=== PATIENT | male | born 1990 | race Caucasian/White ===

== ENCOUNTER 2025-04-19 02:15 | Emergency (ER) | payer OTHER, SELFPAY ==
--- OUTSIDE RECORDS SUMMARY | 2025-04-16 12:00 | XMS_ITS | Encounter Summary ---
Author Organization [facility] Address [address] [place] [address] Care Team Providers Care Screedman/Laborer Name Role Phone Diana Garcia APRN, CNP Primary Care Provider Reason for Visit * Reason Comments QUESTIONS, GENERAL Entered automaticall y based on patient selection in [employer]. Encounter Details Date Type Department Care Team (Late st Contact Info) Description 04/16/2025 12:00 PM CDT E-Visit [facility] [address] [place] [phone] Diana Garcia APRN, RESEARCH DIRECTOR [address] [place] [phone] Dx: Screening examination for pulmonary tuberculosis [...] Primary documented in this encounter Care Teams Screedman/Laborer Relationship Specialty Start Date End Date Diana Garcia APRN, CNP [address] [place], [place] [phone] PCP - General Nurse Practitioner 11/22/23 documented as of this encounter
--- OUTSIDE RECORDS SUMMARY | 2025-04-16 15:10 | XMS_ITS | Encounter Summary ---
Author Organization [facility] Address [address] [facility] [place] [address] Care Team Providers Care Packager Or Packer And Weigher Name Role Phone Diana Garcia APRN, WHITLEY Primary Care Provider Encounter Details Date Type Department Care Team (Latest Contact Info) Description 04/16/2025 3:10 PM CDT Lab Visit Laboratory at [address] [phone] Screening examination for pulmonary tuberculosis Social History Tobacco Use Types Packs/Day Years [...] on file documented as of this encounter Plan of Treatment Not on file documented as of this encounter Procedures Procedure Name Priority Date/Time Associated Diagnosis Comments TB QUANTIFERON GOLD PLUS Routine 04/16/2025 2:43 PM CDT Screening examination for pulmonary tuberculosis TB QUANTIFERON GOLD PLUS MITOGEN Routine 04/16/2025 2:43 PM CDT Screening examination for pulmonary tuberculosis TB QUANTIFERON GOLD PLUS TB2 Routine 04/16/2025 2:43 PM CDT Screening examination for pulmonary tuberculosis TB QUANTIFERON GOLD PLUS TB1 Routine 04/16/2025 2:43 PM CDT Screening examination for pulmonary tuberculosis TB QUANTIFERON GOLD PLUS NIL Routine 04/16/2025 2:43 PM CDT Screening examination for pulmonary tuberculosis documented in this encounter Results * TB QuantiFERON Gold Plus Mitogen (04/16/2025 2:43 PM CDT) MITOGEN >10.000 IU/mL 04/18/2025 11:04 AM CDT [facility] Blood Venipuncture / Unknown 04/16/2025 2:43 PM CDT 04/16/2025 2:43 PM CDT Diana Garcia APRN, DENTAL CHAIRSIDE ASSISTANT LAB_1 Final Result Performing Organization Address [facility] Phone Number [facility] [address] [place] [address] * TB QuantiFERON Gold Plus TB2 (04/16/2025 2:43 PM CDT) TB2 0.165 IU/mL 04/18/2025 11:05 AM CDT [facility] Blood Venipuncture / Unknown 04/16/2025 2:43 PM CDT 04/16/2025 2:43 PM CDT Diana Garcia APRN, DENTAL CHAIRSIDE ASSISTANT LAB_1 Final Result Performing Organization Address [facility] Phone Number [facility] [address] [place] [address] * TB QuantiFERON Gold Plus TB1 (04/16/2025 2:43 PM CDT) TB1 0.111 IU/mL 04/18/2025 11:05 AM CDT [facility] Blood Venipuncture / Unknown 04/16/2025 2:43 PM CDT 04/16/2025 2:43 PM CDT Diana Garcia APRN, CNP LAB_1 Final Result Performing Organization Address [facility] de Phone Number [facility] [address] * TB QuantiFERON Gold Plus NIL (04/16/2025 2:43 PM CDT) [facility] TB QuantiFERON Gold Plus Negative, M. tuberculosis Infection NOT likely Negative, M. tuberculosis Infection NOT likely 04/18/2025 11:05 AM CDT [facility] NIL 0.233 IU/mL 04/18/2025 11:05 AM CDT [facility] TB1-NIL -0.12 IU/mL 04/18/2025 11:05 AM CDT [facility] TB2-NIL -0.06 IU/mL 04/18/2025 11:05 AM CDT [facility] Mitogen-NIL 9.77 IU/mL 04/18/2025 11:05 AM CDT [facility] Blood Venipuncture / Unknown 04/16/2025 2:43 PM CDT 04/16/2025 2:43 PM CDT Narrative [facility] - 04/18/2025 11:05 AM CDT The results of the QuantiFERON TB Gold Plus should be correlated clinically. A single positive test in populations with a low prevalence of latent tuberculosis infection (low pretest probability), should not be taken as definitive evidence of infection. Decisions regarding retesting should be made on a case by case basis. When TB1-NIL or TB2-NIL is low (<1 IU/mL), repeat testing may alternate between positive and negative due to measurement imprecision and not necessarily a change in immune response. For more information refer to: https://www.cdc.gov/mmwr/preview/mmwrhtml/uz9827f0.htm. Diana Garcia APRN, CNP LAB_1 Final Result Performing Organization Address [facility] de Phone Number [facility] [address] documented in this encounter Visit Diagnoses Diagnosis Screening examination for pulmonary tuberculosis documented in this encounter Care Teams Packager Or Packer And Weigher Relationship Specialty Start Date End Date Diana Garcia, ETELVINA, DENTAL CHAIRSIDE ASSISTANT [address] [facility] [address] [place] [phone] PCP - General Nurse Practitioner 11/22/23 documented as of this encounter
--- OUTSIDE RECORDS SUMMARY | 2025-04-19 02:18 | XMS_ITS | Clinical Summary ---
[facility] Organization [facility] Address [address] [place] [address] Care Team Providers Care Rouge Sifter [employer] Miller Name Role Phone Diana Garcia APRN, CNP Primary Care Provider Source Comments You are receiving this document as you are listed as the primary care provider,follow-up provider, or the patient has been referred to you for consultation.This is in compliance with the Medicare andMedicaid EHR Incentive Program,which states Providers who transition their patient to another setting of careor provider of care or refers their patient to another provider of care shouldprovide summary care record for each transition of care or referral. [facility] Allergies Active Allergy Reactions Criticality Noted Date Comments Iodinated Contrast Media Hives 09/13/2011 Penicillins Hives 09/13/2011 Review Contrast Media 09/24/2008 PN: LW CM1: Contrast IV - Nonionic Reaction : HIVES LW CM2: Reaction : Itching, Pruritis Shellfish-Derived Products Hives High 2 Medications * This document contains information received from the source organization and may not represent a complete record from that organization. cholecalciferol (VITAMIN D3) 50 MCG (1999 UT) capsule Take 1 Capsule (2,000 Units) by mouth. Active FLUoxetine (PROZAC) 40 MG capsuleIndicatio ns:Depression, recurrent (HRC) Take 1 Capsule (40 mg) by mouth daily. 90 Capsule 3 5 11/14/19 26 Active buPROPion (WELLBUTRIN XL) 150 MG 24 hour release tabletIndication s:Depression, recurrent (HRC) Take 1 Tablet (150 mg) by mouth daily. 90 Tablet 3 5 12/09/19 26 Active busPIRone (BUSPAR) 5 MG tabletIndication s:Anxiety (HRC) Take 1 Tablet (5 mg) by mouth two times a day. 180 Tablet 3 5 12/09/19 26 Active Phentermine HCl (ADIPEX-P) 37.5 MG tabletIndication s:Class 3 severe obesity due to excess calories with serious comorbidity and body mass index (BMI) of 40.0 to 44.9 in adult TAKE ONE TABLET BY MOUTH EVERY DAY BEFORE BREAKFAST 90 Tablet 5 Active Active Problems Problem Noted Date Diagnosed Date Labral tear of shoulder, right, initial encounte r 11/22/2023 Subacromial bursitis of right shoulder joint 04/2024 Depression, recurrent 02/12/2019 Anxiety 02/12/2019 Hyperlipidemia with target LDL less than 130 Mild intermittent asthma without complication Overview (06/07/2017): Asthma NOS Resolved Problems Problem Noted Date Diagnosed Date Resolved Date Aftercare following surgery of the musculoskeletal system 08/29/2022 11/22/2023 OM (otitis media) 06/05/2012 11/22/2023 Overview (06/07/2017): recurrent - plan extended course abx - w f/u to ensure resolution - consider referral ENT for recurrent OM if recurrs or not resolving ; L OM (otitis media) Sinusitis 06/05/2012 11/22/2023 Overview (06/05/2012): probably primary cause of OM, nasal sx,s and even cough - doubt lungs involved - possible cause of recurrent (or persistent ) OM Encounters Date Type Department Care Team Description 04/16/2025 3:10 PM CDT Lab Visit Laboratory at [address] [id number] Screening examination for pulmonary tuberculosis 04/16/2025 12:00 PM CDT E-Visit [address] [address] Diana Garcia, HOUSE CLEANER SUPERVISOR, CLINICAL RN Dx: Screening examination for pulmonary tuberculosis (Primary Dx) 02/18/2025 1:00 PM CDT Lab Visit Laboratory at [facility] [id number] [place] [phone] Major depressive disorder, single episode, moderate (HRC) 02/18/2025 Telephone [facility] [address] [place] [address] Diana Garcia APRN, CNP Depression Registry Call 2 02/14/2025 Orders Only Security Contact Provider, Not On File Major depressive disorder, single episode, moderate (HRC) (Primary Dx) 02/05/2025 Refill [facility] [address] [place] [address] Diana Garcia APRN, CNP Refill (Phentermine HCl (ADIPEX-P) 37.5 MG tablet [Pharmacy Med Name: PHENTERMINE HCL 37.5MG TABS]) from Last 3 Months Immunizations Immunization Administration Dates Next Due Flu Vac (3+ yrs) 07/04/2012 Flu Vac Preserv Free (3+yrs) 09/06/2024 HepA Adult (19+ yrs) 03/06/2017,04/06/2012 HepA, Unspecified Formulation 04/06/2012 HepB Adult (Engerix-B, 20+ y rs, 3 dose series) 06/21/2012,04/06/2012,04/06/2012,2010,06/01/2011 Influenza IIV4 (Quadrivalent ) 0.5mL (10175) 07/26/2023,08/02/2021,07/22/2020,2018,07/20/2018,08/03/2017,07/18/2016,0 07/06/2015 Influenza, Unspecified Formulation 08/16/2016 MMR 06/01/2011, 1,06/12/2000,1999 Pfizer Monovalent 12+ Purple Top 10/20/2021,10/16,10/05/2020 TB Skin Test (PPD) 06/01/2011 TB Test - Historical 06/01/2011 TDAP (ADACEL) 06/14/2010 Td 06/12/2000 Tdap 11/19/2021,04/13/2021,06/14/2010 Varicella 04/22/2019,02/26/2019 Family History Medical History Relation Name Comments Hypertension Father Father Coronary Artery Disease Paternal Grandfather Relation Name Status Comments Father Father Paternal Grandfather Social History Tobacco Use Types Packs/Day Years [...] on file Sexual Orientation Not on file Last Filed Vital Signs Vital Sign Reading Time Taken Comments Blood Pressure 143/90 12/02/2024 5:10 PM AWARD MACHINE OPERATOR Pulse 92 12/02/2024 5:10 PM AWARD MACHINE OPERATOR Temperature 35.6 C (96.1 F) 12/02/2024 5:10 PM AWARD MACHINE OPERATOR Respiratory Rate 18 12/02/2024 5:10 PM AWARD MACHINE OPERATOR Oxygen Saturation 99% 12/02/2024 5:10 PM AWARD MACHINE OPERATOR Inhaled Oxygen Concentration - - Weight 106.7 kg (235 lb 3.2 oz) 11/14/2024 1:29 PM AWARD MACHINE OPERATOR Height 172.7 cm (5' 8) 11/22/2023 2:52 PM AWARD MACHINE OPERATOR Body Mass Index 35.76 11/22/2023 2:52 PM AWARD MACHINE OPERATOR Plan of Treatment Health Maintenance Due Date Last Done Comments Adult Preventive Visit 01/20/2006 Pneumococcal Vaccine (1 of 2 - PCV) 01/20/2007 COVID-19 Vaccine ( - season) 2024 10/20/2021, 10/28/2020, 10/05/2020 Influenza Vaccine (#1) 2025 , 07/26/2023, 08/02/2021, Additional history exists Asthma ACT (score of 20 or higher) 11/14/2025 11/14/2024, 11/22/2023 Cholesterol 12/19/2028 12/20/2023, 03/06/2017 DTaP/Tdap/Td Vaccine (6 - Tdap) 11/19/2031 11/19/2021, 04/13/2021, 06/14/2010, Additional history exists Zoster/Shingles Vaccine (1 of 2) 01/20/2038 HepB Vaccine Completed 06/21/2012, 03/17, 04/06/2012, Additional history exists HIV Screening (Preventive Services) Completed 03/06/2017 Hep C Screening (Preventive Services) Completed 03/06/2017 HepA Vaccine Completed 03/06/2017, 03/17, 04/06/2012 HPV Vaccine Aged Out No longer eligi ble based on patient's age to complete this topic Hib Vaccine Aged Out No longer eligi ble based on patient's age to complete this topic IPV (Polio) Vaccine Aged Out No longe r eligible based on patient's age to complete this topic MCV4 Vaccine Aged Out No longer eligi ble based on patient's age to complete this topic Meningococcal B Vaccine Aged Out No l onger eligible based on patient's age to complete this topic Procedures Procedure Name Priority Date/Time Associated Diagnosis Comments TB QUANTIFERON GOLD PLUS MITOGEN Routine 04/16/2025 [...] for pulmonary tuberculosis TB QUANTIFERON GOLD PLUS Routine 04/16/2025 2:43 PM CDT Screening examination for pulmonary tuberculosis VITAMIN D 25-HYDROXY, TOTAL Routine 02/18/2025 12:57 PM CDT Major depressive disorder, single episode, moderate (HRC) FOLATE ONLY (4HR FAST RECOMMENDED) Routine 02/18/2025 12:57 PM CDT Major depressive disorder, single episode, moderate (HRC) VITAMIN B12 ONLY Routine 02/18/2025 12:5 7 PM CDT Major depressive disorder, single episode, moderate (HRC) LIPID PANEL & DIRECT LDL (IF NEEDED) Routine 12/20/2023 8:50 AM AWARD MACHINE OPERATOR Class 3 severe obesity due to excess calories with serious comorbidity and body mass index (BMI) of 40.0 to 44.9 in adult (HRC) Hyperlipidemia with target LDL less than 130 (HRC) HIV 1/2 AG/AB 4TH GEN Routine 03/06/2017 9:31 AM CDT Employee exposure to blood HEPATITIS C ANTIBODY, WITH REFLEX (ANTI-HCV) Routine 03/06/2017 9:31 AM CDT Employee exposure to blood from Last 3 Months or Most Recently Relevant to Health Maintenance Results * TB QuantiFERON Gold Plus Mitogen (04/16/2025 2:43 PM CDT) MITOGEN >10.000 IU/mL 04/18/2025 11:04 AM CDT [facility] Blood Venipuncture / Unknown 04/16/2025 2:43 PM CDT 04/16/2025 2:43 PM CDT us Diana Garcia APRN, CLINICAL RN LAB_1 Final Result [facility] [place] [address] * TB QuantiFERON Gold Plus TB2 (04/16/2025 2:43 PM CDT) TB2 0.165 IU/mL 04/18/2025 11:05 AM CDT [facility] Blood Venipuncture / Unknown 04/16/2025 2:43 PM CDT 04/16/2025 2:43 PM CDT us Diana Garcia APRN, CLINICAL RN LAB_1 Final Result [facility] [address] [place], [place] [id number] [place] [address] * TB QuantiFERON Gold Plus TB1 (04/16/2025 2:43 PM CDT) Pathologist [facility] TB1 0.111 IU/mL 04/18/2025 11:05 AM CDT [facility] Blood Venipuncture / Unknown 04/16/2025 2:43 PM CDT 04/16/2025 2:43 PM CDT us Diana Garcia HOUSE CLEANER SUPERVISOR, CLINICAL RN LAB_1 Final Result [facility] [address] * TB QuantiFERON Gold Plus NIL (04/16/2025 2:43 PM CDT) [facility] TB QuantiFERON Gold Plus Negative, M. tuberculosis Infection NOT likely Negative, M. tuberculosis Infection NOT likely 04/18/2025 11:05 AM CDT [facility] NIL 0.233 IU/mL 04/18/2025 11:05 AM CDT [facility] TB1-NIL -0.12 IU/mL 04/18/2025 11:05 AM CDT [facility] TB2-NIL -0.06 IU/mL 04/18/2025 11:05 AM CDT [facility] Mitogen-NIL 9.77 IU/mL 04/18/2025 11:05 AM CDT [facility] Blood Venipuncture / Unknown 04/16/2025 2:43 PM CDT 04/16/2025 2:43 PM CDT Narrative [facility] - 04/18/2025 11:05 AM CDT The [...] immune response. For more information refer to: https://www.cdc.gov/mmwr/preview/mmwrhtml/md4385i6.htm. us Diana Garcia APRN, CLINICAL RN LAB_1 Final Result Performing Organization Address [facility] Co de Phone Number [facility] [address] * Vitamin D 25-Hydroxy, Total (02/18/2025 12:57 PM CDT) Vitamin D, 25-OH, Total 30 30 - 80 ng/mL 02/18/2025 7:58 PM CDT [facility] Blood Venipuncture / Unknown 02/18/2025 12:57 PM CDT 02/18/2025 12:57 PM CDT Narrative [facility] - 02/18/2025 7:58 PM CDT Expected values Deficiency: <20 ng/mL Insufficiency: 20-29 ng/mL Optimum: 30-80 ng/mL Possible toxicity: >80 ng/mL us Not On File Provider LAB_1 Final Resul t Performing Organization Address [facility] de Phone Number [facility] [address] * Folate Only (4Hr Fast Recommended) (02/18/2025 12:57 PM CDT) Folate 12.5 >=7.0 ng/mL 02/18/2025 8:11 PM CDT [facility] Blood Venipuncture / Unknown 02/18/2025 12:57 PM CDT 02/18/2025 12:57 PM CDT us Not On File Provider LAB_1 Final Resul t Performing Organization Address [facility] Co de Phone Number [facility] [address] * Vitamin B12 Only (02/18/2025 12:57 PM CDT) Vitamin B12 773 213 - 816 pg/mL 02/18/2025 8:04 PM CDT [facility] Blood Venipuncture / Unknown 02/18/2025 12:57 PM CDT 02/18/2025 12:57 PM CDT us Not On File Provider LAB_1 Final Resul t [facility] [address] * Lipid Panel and Direct LDL(If Needed) (12/20/2023 8:50 AM AWARD MACHINE OPERATOR) Cholesterol 186 0 - 199 mg/dL 12/20/2023 12:06 PM AWARD MACHINE OPERATOR [facility] Triglyceride 139 <=149 mg/dL 12/20/2023 12:06 PM AWARD MACHINE OPERATOR [facility] HDL Cholesterol 40 >=40 mg/dL 12/20/2023 12:06 PM AWARD MACHINE OPERATOR [facility] LDL, Calculated 118 <130 mg/dL 12/20/2023 12:06 PM AWARD MACHINE OPERATOR [facility] Non HDL Chol, Calculated 146 <=159 mg/dL 12/20/2023 12:06 PM AWARD MACHINE OPERATOR [facility] Cholesterol/HDL Ratio 4.7 <=5.0 12/20/2023 12:06 PM AWARD MACHINE OPERATOR [facility] Hours Fasting 0.1 8 - 12 Hours 12/20/2023 12:06 PM AWARD MACHINE OPERATOR [facility] Blood Venipuncture / Unknown 12/20/2023 8:50 AM AWARD MACHINE OPERATOR 12/20/2023 8:51 AM AWARD MACHINE OPERATOR us Diana Garcia APRN, CLINICAL RN LAB_1 Final Result [facility] [address] * HIV 1/2 Ag/Ab 4th Generation (03/06/2017 9:31 AM CDT) HIV 1/2 AG/AB 4thGEN Negative (Non Reactive) [facility] Comment:HIV-1 p24 Ag and HIV -1/HIV-2 Ab not detected. 03/06/2017 9:31 AM CDT 03/06/2017 9:32 AM CDT Narrative [facility] - 03/06/2017 4:24 PM CDT Performed at [facility], [address] [place] [address] Abbi Figueroa MD LAB_1 Final Result Performing Organization Address [facility] de Phone Number [facility] [phone] * Hepatitis C Antibody, with Reflex (03/06/2017 9:31 AM CDT) Pathologist [facility] Anti-HCV Negative (Non Reactive) [facility] Comment: Antibodies to HCV not detected. Does not exclude the possibility of exposure to HCV. 03/06/2017 9:31 AM CDT 03/06/2017 9:33 AM CDT Narrative [facility] - 03/06/2017 4:18 PM CDT Performed at [facility], [address] [place] [address] Abbi Figueroa MD LAB_1 Final Result Performing Organization Address [facility] de Phone Number [facility] [phone] from Last 3 Months or Most Recently Relevant to Health Maintenance Insurance [employer] [place] [id number] Care Teams Rouge Sifter [employer] Miller Relationship Specialty Start Date End Date Diana Garcia, HOUSE CLEANER SUPERVISOR, CLINICAL RN [address] [place] [phone] PCP - General Nurse Practitioner 11/22/23
--- OUTSIDE RECORDS SUMMARY | 2025-04-19 02:18 | XMS_ITS | Clinical Summary ---
Author Organization [facility] Address [address] [place] [address] Care Team Providers Care Bariatric Surgeon Name Role Phone Sunita Valadez Unavailable [phone] Unavailable [phone] Diana Garcia NP Primary Care Provider [phone] Allergies Active Allergy Reactions Criticality Noted Date Comments Iodinated Contrast Media Hives 02/23/2011 Non ionic contrast dye Penicillins Hives 02/17/2011 Shellfish Derived Hives 08/17/2022 Medications ASHWAGANDHA ROOT EXTRACT ORAL Take by mouth. Active atorvastatin (Lipitor) 40 mg tabletIndications:H ypercholesterolemia Take 1 Tablet (40 mg) by mouth at bedtime. 100 Tablet 3 3 Active cholecalciferol (Vitamin D-3) 2,000 unit capsule Take 2,000 units by mouth once daily. Active FLUoxetine (PROZAC) 40 mg capsuleIndications: Depression, recurrent,Anxiety Take 1 Capsule (40 mg) by mouth every morning. 100 Capsule 3 3 Active phentermine (ADIPEX-P) 37.5 mg tablet Take 18.75 mg by mouth. 4 Active ondansetron (ZOFRAN ODT) 4 mg disintegrating tabletIndications:G astroenteritis Place 1 Tablet (4 mg) on the tongue every 8 hours if needed for Nausea/Vomit ing. 8 Tablet 4 Active Active Problems Problem Noted Date Diagnosed Date Hypercholesterolemia 05/11/2023 s/p right shoulder arthrosco pic biceps tenodesis and extensive debridement by Selene Starks MD DOS: 08/17/2022 08/29/2022 Depression, recurrent 02/12/2019 Anxiety 02/12/2019 Contact dermatitis 05/23/2015 Labral tear of shoulder, right, initial encounte r Subacromial bursitis of right shoulder joint Resolved Problems Problem Noted Date Diagnosed Date Resolved Date HTN (hypertension) 02/12/2019 Rash 05/23/2015 04/13/2021 Immunizations Immunization Administration Dates Next Due COVID-19 vaccine ([employer] 30mcg/0.3mL) PF, MDV 10/28/2020,10/05/2020 Hepatitis A (Adult) 03/06/2017 Hepatitis A, Unspecified 04/06/2012 Influenza Virus, Unspecified 08/16/2016 Influenza, IIV3 (Age >=3 years) 07/04/2012 Influenza, IIV4 07/22/2020, 9,07/20/2018,2016,07/18/2016,07/06/2015 MMR 06/01/2011,06/12/2000 Td (Age >=7 Years) 06/12/2000 Td, Preservative Free (age > = 7 Years) 06/12/2000 Tdap 04/13/2021,06/14/2010 Tuberculin (PPD) 06/01/2011 Varicella Vaccine 04/22/2019,02/26/2019 Family History Medical History Relation Name Comments Good Health Brother 1 Good Health Brother 2 Good Health Brother 3 Diabetes Father Hypertension Father Good Health Mother Anesthesia Problem No Family History Blood Disease No Family History Clotting disorder No Family History Relation Name Status Comments Brother 1 Alive Brother 2 Alive Brother 3 Alive Father Alive Mother Alive Social History Tobacco Use Types Packs/Day Years Used Date Smoking Tobacco: Never Smokeless Tobacco: Never Tobacco Cessation:Counseling Given: Yes Alcohol Use Standard Drinks/Week Comments Yes 0 (1 standard drink = 0.6 oz pure alcohol) A couple times a month; a couple glasses at a time PHQ-2 Answer Date Recorded PHQ-2 TOTAL SCORE 2 07/06/2023 Social Connections Answer Date Recorded Frequency of Communication with Friends and Fami ly 0 10/07/2022 Financial Resource Strain Answer Date R ecorded Difficulty of Paying Living Expenses 3 10/07/2022 Difficulty of Paying Living Expenses Not on file 10/07/2022 Food Insecurity Answer Date Recorded Worried About Running Out of Food in the Last Ye ar 1 10/07/2022 Transportation Needs Answer Date Record ed Lack of Transportation (Medical) 1 10/07/2022 Housing Stability Answer Date Recorded Unable to Pay for Housing in the Last Year 1 10/07/2022 Sex and Gender Information Value Date Recorded Sex Assigned at Not on file 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 Gender Identity Not on file Sexual Orientation Not on file 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 Not on file Not on file 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 Not on file Not on file Obstetrics History Last Filed Vital Signs Vital Sign Reading Time Taken Comments Blood Pressure 140/92 01/20/2024 4:16 PM CDT Pulse 100 01/20/2024 4:16 PM CDT Temperature 37.1 C (98.7 F) 01/20/2024 4:16 PM CDT Respiratory Rate 16 01/20/2024 4:16 PM CDT Oxygen Saturation 97% 01/20/2024 4:16 PM CDT Inhaled Oxygen Concentration - - Weight 113.4 kg (250 lb) 01/20/2024 4:16 PM CDT Height 171.5 cm (5' 7.5) 01/20/2024 4:16 PM CDT Body Mass Index 38.58 01/20/2024 4:16 PM CDT Plan of Treatment Health Maintenance Due Date Last Done Comments HIV for age 15-65 01/20/2003 Hepatitis C screening for age 18-79 01/20/2006 Hepatitis B series for 19+ (1 of 3 - 19+ 3-dose series) 01/20/2007 COVID-19 vaccine series ( season) 2024 10/20/2021, 10/28/2020, 10/05/2020 Depression screening for age 12+ 07/10/2024 07/10/2023, 07/06/2023, 08/18/2022, Additional history exists BMI (ht and wt on same day) for age 18+ 08/30/2024 08/30/2023, 08/01/2023, 07/24/2023, Additional history exists Influenza Vaccine (#1) 2025 0, 07/29/2019, 07/20/2018, Additional history exists Lipids for age 35-44 05/08/2028 05/08/2023, 04/13/2021, 04/13/2021 Tetanus booster 04/13/2031 04/13/2021, 08/, 06/12/2000, Additional history exists Pneumococcal series for age 6-49 Aged Out No longer eligible based on patient's age to complete this topic Medical Devices Implanted Type Area Can Filler Device Identifier Shelf Expiration Date Model / Serial / Lot [id number] - [id number] Implanted:Qty: 1 on 08/17/2022 by Selene Starks MD at [facility] Right: Shoulder [employer] 11/15/2025 [id number] / / [id number] Description:Suture anchor, b iocomposite swivel lock, 3.9 x 17.9 mm Procedures Procedure Name Priority Date/Time Associated Diagnosis Comments LIPID PANEL W REFLEX MEASURED LDL Routine 05/08/2023 10:16 AM CDT Morbid obesity with BMI of 40.0-44.9, adult (HC) from Last 3 Months or Most Recently Relevant to Health Maintenance Results * (ABNORMAL) LIPID PANEL W REFLEX MEASURED LDL (05/08/2023 10:16 AM CDT) CHOLESTEROL,TOTAL 280(H) 100 - 199 mg/dL 05/08/2023 7:18 PM CDT [facility] Comment: Cholesterol, Total Reference Ranges Desirable <200 mg/dL Borderline 200-239 mg/dL High >=240 mg/dL TRIGLYCERIDES 218(H) <150 mg/dL 05/08/2023 7:18 PM CDT [facility] HDL CHOLESTEROL 37(L) >40 mg/dL 7:18 PM CDT [facility] NON-HDL CHOLESTEROL 243(H) <145 mg/dl 05/08/2023 7:18 PM CDT [facility] CHOL/HDL RATIO 7.57(H) <4.50 05/08/2023 7:18 PM CDT [facility] LDL CHOLESTEROL 199(H) <=130 mg/dL 05/08/2023 7:18 PM CDT [facility] VLDL CHOLESTEROL 44(H) <=30 mg/dL 05/08/2023 7:18 PM CDT [facility] PROVIDER ORDERED STATUS FASTING 05/08/2023 7:18 PM CDT [facility] Blood BLOOD SPECIMEN / Unknown Venipuncture / Unknown 05/08/2023 10:16 AM CDT 05/08/2023 10:16 AM CDT us Sunita FONTENOT CHEMISTRY Final Re sult [facility] [address] [place] [address], from Last 3 Months or Most Recently Relevant to Health Maintenance Insurance [facility] [place] [id number] WC WORKERS COMP Advance Directives * Full Code (Latest Code Status on File) Date Activated Date Inactivated Comments 08/17/2022 8:48 AM 08/17/2022 7:09 PM Question Answer Comments Code Status Discussion: Other * Full Code Date Activated Date Inactivated Comments 02/25/2011 7:33 AM 02/25/2011 12:38 PM Care Teams Bariatric Surgeon Relationship Specialty Start Date End Date Diana Garcia NP [address] [place] [phone] PCP - General Nurse Practitioner 01/20/24 Sunita Valadez PA [address] [id number] Physician Turn Out 05/04/[address] [facility] [place] [address] Central Supply Supervisor 05/04/23
--- OUTSIDE RECORDS SUMMARY | 2025-04-19 02:18 | XMS_ITS | Clinical Summary ---
Author Organization [facility] Address [address] [place] [address]. [place] [address] Care Team Providers Care Manager Sap Name Role Phone Damaso Arora PA-C Primary Care Provider Allergies Active Allergy Reactions Criticality Noted Date Comments Contrast Dye Hives 06/14/2010 Penicillins Hives 06/14/2010 Medications NO ACTIVE MEDICATIONS . Active Active Problems Problem Noted Date Diagnosed Date Morbid obesity 02/22/2018 Obesity 08/29/2010 Hyperlipidemia with target LDL less than 130 Immunizations Immunization Administration Dates Next Due MMR (MMRII) 06/12/2000 TD,PF 7+ (Tenivac) 06/12/2000 TDAP Vaccine (Adacel) 06/14/2010 Social History Tobacco Use Types Packs/Day Years Used Date Smoking Tobacco: Never Smokeless Tobacco: Never Alcohol Use Standard Drinks/Week Comments Yes 0 (1 standard drink = 0.6 oz pur e alcohol) PHQ-2 Answer Date Recorded PHQ-2 Score 0 10/23/2018 Adolescent Education Answer Date Record ed Getting School Help Needed Not on file 07/13 Sex and Gender Information Value Date Recorded Sex Assigned at Not on file 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 Gender Identity Not on file Sexual Orientation Not on file Last Filed Vital Signs Vital Sign Reading Time Taken Comments Blood Pressure 128/80 02/22/2018 10:31 AM CDT Pulse 81 02/22/2018 10:16 AM CDT Temperature 36.6 C (97.9 F) 02/22/2018 10:16 AM CDT Respiratory Rate 18 02/22/2018 10:1 6 AM CDT Oxygen Saturation 96% 02/22/2018 10: 16 AM CDT Inhaled Oxygen Concentration - - Weight 118.9 kg (262 lb 1.6 oz) 018 10:16 AM CDT Height 170.2 cm (5' 7) 02/22/2018 10:1 6 AM CDT Body Mass Index 41.05 02/22/2018 10:16 AM CDT Plan of Treatment Not on file Insurance MEDICA CHOICE * Guarantor: [facility] Account Type Relation to Patient Date of Phone Billing Address Employer Related Employer [id number] [place] [address] Care Teams Manager Sap Relationship Specialty Start Date End Date Damaso Arora PA-C [id number] [phone] PCP - General Physician Graining Machine Operator 02/20/18
[2025-04-19 02:29] VITALS: BP 150/87; PULSE 98; RESP 16; TEMP 36.4; O2SAT 98; BMI 37.1
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
[2025-04-19] MEDS: TETANUS/DIPHTH/PERTUSSIS 0.5 ML SYRINGE IM (03:49)
== END 2025-04-19 04:02 | disposition home or self-care (01) ==
PROVIDERS: Emergency Provider Emergency Medicine
DX: S81.012A Laceration without foreign body, left knee, initial encounter (principal); W26.9XXA Contact with unspecified sharp object(s), initial encounter
CPT/HCPCS: 12001; 90471; 90715; 99283

== ENCOUNTER 2025-04-27 13:20 | Emergency (ER) | payer OTHER, SELFPAY ==
--- OUTSIDE RECORDS SUMMARY | 2025-04-16 12:00 | XMS_ITS | Encounter Summary ---
Author Organization [facility] Address [address] [facility] [facility] [address] [place] [place] [address] Care Team Providers Care Policy Change Clerk Name Role Phone Diana Garcia APRN, CNP Primary Care Provider Reason for Visit * Reason Comments QUESTIONS, GENERAL Entered automaticall y based on patient selection in [employer]. Encounter Details Date Type Department Care Team (Late st Contact Info) Description 04/16/2025 12:00 PM CDT E-Visit [facility] [address] [place] [phone] Diana Garcia APRN, SURGERY CENTER ADMINISTRATOR [address] [place] [phone] Dx: Screening examination for pulmonary tuberculosis (Primary Dx) Social History Tobacco Use Types Packs/Day Years Used Date Smoking Tobacco: Never Passive Smoke Exposure: Never Smokeless Tobacco: Never Alcohol Use Standard Drinks/Week Comments Yes 0 (1 standard drink = 0.6 oz pur e alcohol) Every couple weeks PHQ-2 Answer Date Recorded PHQ-2 Score 6 07/24/2024 Sex and Gender Information Value Date Recorded Sex Assigned at Not on file Legal Sex Male 6:42 AM CDT Gender Identity Not on file Sexual Orientation Not on file documented as of this encounter Nursing Notes * Elyse Leon - 04/16/2025 2:26 PM CDT Appt scheduled. * Elyse Leon - 04/16/2025 11:59 AM CDT Once order is placed, please route back to FRONTL[facility] to assist patient in scheduling lab appt. Thank you documented in this encounter Miscellaneous Notes * E-Visit Routing Comment - Diana Garcia APRN, CNP - 04/16/2025 2:04 PM CDT Approve orders or tasks as below completed. Please follow up as necessary. Thank you. Diana Garcia APRN, CNP 04/16/2025, 2:04 PM documented in this encounter Plan of Treatment Not on file documented as of this encounter Visit Diagnoses Diagnosis Screening examination for pulmonary tuberculosis- Primary documented in this encounter Care Teams Policy Change Clerk Relationship Specialty Start Date End Date Diana Garcia APRN, CNP [address] [place], [place] [phone] PCP - General Nurse Practitioner 11/22/23 04/23/25 documented as of this encounter
--- OUTSIDE RECORDS SUMMARY | 2025-04-16 15:10 | XMS_ITS | Encounter Summary ---
Author Organization [facility] Address [address] [facility] [place] [address] Care Team Providers Care Carpenter Assistant Installer Name Role Phone Diana Garcia APRN, WHITLEY Primary Care Provider Encounter Details Date Type Department Care Team (Latest Contact Info) Description 04/16/2025 3:10 PM CDT Lab Visit Laboratory at [address] [phone] Screening examination for pulmonary tuberculosis Social History [...] MITOGEN >10.000 IU/mL 04/18/2025 11:04 AM CDT [facility] Blood Venipuncture / Unknown 04/16/2025 2:43 PM CDT 04/16/2025 2:43 PM CDT Diana Garcia APRN, HEALTH CONSULTANT LAB_1 Final Result Performing Organization Address [facility] Phone Number [facility] [address] [place] [address] * TB QuantiFERON Gold Plus TB2 (04/16/2025 2:43 PM CDT) TB2 0.165 IU/mL 04/18/2025 11:05 AM CDT [facility] Blood Venipuncture / Unknown 04/16/2025 2:43 PM CDT 04/16/2025 2:43 PM CDT Diana Garcia APRN, HEALTH CONSULTANT LAB_1 Final Result Performing Organization Address [facility] Phone Number [facility] [address] [place] [address] * TB QuantiFERON Gold Plus TB1 (04/16/2025 2:43 PM CDT) TB1 0.111 IU/mL 04/18/2025 11:05 AM CDT [facility] Blood Venipuncture / Unknown 04/16/2025 2:43 PM CDT 04/16/2025 2:43 PM CDT Diana Garcia APRN, CNP LAB_1 Final Result Performing Organization Address [facility] de Phone Number [facility] [address] * TB QuantiFERON Gold Plus NIL (04/16/2025 2:43 PM CDT) [facility] TB QuantiFERON Gold Plus Negative, M. tuberculosis Infection NOT likely Negative, M. tuberculosis Infection NOT likely 04/18/2025 11:05 AM CDT [facility] NIL 0.233 IU/mL 04/18/2025 11:05 AM CDT [facility] TB1-NIL -0.12 IU/mL 04/18/2025 11:05 AM CDT [facility] TB2-NIL -0.06 IU/mL 04/18/2025 11:05 AM CDT [facility] Mitogen-NIL 9.77 IU/mL 04/18/2025 11:05 AM CDT [facility] Blood Venipuncture / Unknown 04/16/2025 2:43 PM CDT 04/16/2025 2:43 PM CDT Narrative [facility] - 04/18/2025 11:05 AM CDT The [...] immune response. For more information refer to: https://www.cdc.gov/mmwr/preview/mmwrhtml/rp1875a8.htm. Diana Garcia APRN, CNP LAB_1 Final Result Performing Organization Address [facility] Co de Phone Number [facility] [address] documented in this encounter Visit Diagnoses Diagnosis Screening examination for pulmonary tuberculosis documented in this encounter Care Teams Carpenter Assistant Installer Relationship Specialty Start Date End Date Diana Garcia, MOLD WORKER, HEALTH CONSULTANT [address] [facility] [address] [place] [phone] PCP - General Nurse Practitioner 11/22/23 04/23/25 documented as of this encounter
--- OUTSIDE RECORDS SUMMARY | 2025-04-24 09:00 | XMS_ITS | Encounter Summary ---
Author Organization [facility] Address [address] [place] [place] [address] Care Team Providers Care Drum Sealer Name Role Phone Lyn Chan MD Primary Care Provi amina Reason for Visit * Reason Comments MEDICATION CHECK Encounter Details Date Type Department Care Team (Late st Contact Info) Description 04/24/2025 9:00 AM CDT Office Visit [facility] [address] [place] [address] [place] [id number] Lyn Chan MD [address] [place] [address] [place] [id number] Obesity, Class II, BMI 35-39.9 (Primary Dx); Encounter for weight management Social History Tobacco Use Types Packs/Day Years [...] on file documented as of this encounter Last Filed Vital Signs Vital Sign Reading Time Taken Comments Blood Pressure 129/88 04/24/2025 8:51 AM CDT Pulse 88 04/24/2025 8:51 AM CDT Temperature - - Respiratory Rate - - Oxygen Saturation - - Inhaled Oxygen Concentration - - Weight 111.8 kg (246 lb 6.4 oz) 04/24/2025 8:51 AM CDT Height 170.2 cm (5' 7) 04/24/2025 8:51 AM CDT Body Mass Index 38.59 04/24/2025 8:51 AM CDT documented in this encounter Plan of Treatment Not on file documented as of this encounter Visit Diagnoses Diagnosis Obesity, Class II, BMI 35-39.9- Primary Obesity, unspecified Encounter for weight management documented in this encounter Care Teams Drum Sealer Relationship Specialty Start Date End Date Lyn Chan MD [address] [place] [address] PCP - General Family Practice 04/24/25 documented as of this encounter
--- OUTSIDE RECORDS SUMMARY | 2025-04-27 13:22 | XMS_ITS | Clinical Summary ---
Author Organization [facility] Address [address] [place] [address] Care Team Providers Care Carton Filling Machine Operator Name Role Phone Lyn Chan MD Primary Care Provi amina Source Comments You are receiving this document [...] for each transition of care or referral. [facility] Allergies Active Allergy Reactions Criticality Noted Date [...] 1 Capsule (2,000 Units) by mouth. Active DULoxetine (CYMBALTA) 60 MG delayed release capsule Take 1 Capsule (60 mg) by mouth daily. 03/21/20 25 Active buPROPion (WELLBUTRIN XL) 150 MG 24 hour release tablet Take 1 Tablet (150 mg) by mouth daily. Active Phentermine HCl (ADIPEX-P) 37.5 MG tabletIndicatio ns:Obesity, Class II, BMI 35-39.9,Encount er for weight management Take 1 Tablet (37.5 mg) by mouth daily before breakfast. 90 Tablet 04/24/20 25 025 Active FLUoxetine (PROZAC) 40 MG capsuleIndicati ons:Depression, recurrent (HRC) Take 1 Capsule (40 mg) by mouth daily. 90 Capsule 3 11/14/19 25 025 Discontinued buPROPion (WELLBUTRIN XL) 150 MG 24 hour release tabletIndicatio ns:Depression, recurrent (HRC) Take 1 Tablet (150 mg) by mouth daily. 90 Tablet 3 12/09/19 25 025 Discontinued busPIRone (BUSPAR) 5 MG tabletIndicatio ns:Anxiety (HRC) Take 1 Tablet (5 mg) by mouth two times a day. 180 Tablet 3 12/09/19 025 Discontinued Phentermine HCl (ADIPEX-P) 37.5 MG tabletIndicatio ns:Class 3 severe obesity due to excess calories with serious comorbidity and body mass index (BMI) of 40.0 to 44.9 in adult TAKE ONE TABLET BY MOUTH EVERY DAY BEFORE BREAKFAST 90 Tablet 02/07/20 025 Discontinued(*M ed change OR same med OR reorder, new dose/directions ) Active Problems Problem Noted Date Diagnosed Date Encounter for weight management 04/24/2025 Obesity, Class II, BMI 35-39.9 04/24/2025 Labral tear of shoulder, right, initial encounte [...] Encounters Date Type Department Care Team Description 04/24/2025 9:00 AM CDT Office Visit [facility] [address] [place], [place] [id number] Lyn Chan MD Obesity, Class II, BMI 35-39.9 (Primary Dx); Encounter for weight management 04/21/2025 Results Follow-Up [address] [phone] Diana Garcia APRN, CNP 04/16/2025 3:10 PM CDT Lab Visit Laboratory at [address] [phone] Screening examination for pulmonary tuberculosis 04/16/2025 12:00 PM CDT E-Visit [address] [phone] Diana Garcia APRN, CNP Dx: Screening examination for pulmonary tuberculosis (Primary Dx) 02/18/2025 1:00 PM CDT Lab Visit Laboratory at [address] [phone] Major depressive disorder, single episode, moderate (HRC) 02/18/[address] [phone] Diana Garcia APRN, CNP Depression Registry Call 2 02/14/2025 Orders Only Security Contact Provider, Not On File Major depressive disorder, single episode, moderate (HRC) (Primary Dx) 02/05/[address] [phone] Diana Garcia APRN, CNP Refill (Phentermine [...] series) 06/21/2012,04/06/2012,04/06/2012,2010,06/01/2011 Influenza IIV4 (Quadrivalent ) 0.5mL (90513) 07/26/2023,08/02/2021,07/22/2020,2018,07/20/2018,08/03/2017,07/18/2016,0 07/06/2015 Influenza, Unspecified Formulation 08/16/2016 MMR [...] Pulse 88 04/24/2025 8:51 AM CDT Temperature 35.6 C (96.1 F) 12/02/2024 5:10 PM LUNG PULLER Respiratory Rate 18 12/02/2024 5:10 PM LUNG PULLER Oxygen Saturation 99% 12/02/2024 5:10 PM LUNG PULLER Inhaled Oxygen Concentration - - Weight 111.8 kg (246 lb 6.4 oz) 04/24/2025 8:51 AM CDT Height 170.2 cm (5' 7) 04/24/2025 8:51 AM CDT Body Mass Index 38.59 04/24/2025 8:51 AM CDT Plan of Treatment Health Maintenance Due Date Last Done Comments Adult Preventive Visit 01/20/2006 Pneumococcal Vaccine (1 of 2 - PCV) 01/20/2007 COVID-19 Vaccine ( - season) 2024 10/20/2021, 10/28/2020, 10/05/2020 Influenza Vaccine (#1) 2025 , 07/26/2023, 08/02/2021, Additional history exists Asthma ACT (score of 20 or higher) 11/14/2025 11/14/2024, 11/22/2023 Diabetes Screening- (based on age and BMI) 12/19/2026 12/20/2023, 05/08/2023 Cholesterol 12/19/2028 12/20/2023, 03/06/2017 DTaP/Tdap/Td Vaccine (6 [...] Major depressive disorder, single episode, moderate (HRC) HGB A1C Routine 12/20/2023 8:50 AM LUNG PULLER Class 3 severe obesity due to excess calories with serious comorbidity and body mass index (BMI) of 40.0 to 44.9 in adult (HRC) Hyperlipidemia with target LDL less than 130 (HRC) LIPID PANEL & DIRECT LDL (IF NEEDED) Routine 12/20/2023 8:50 AM LUNG PULLER Class 3 severe obesity due to excess [...] MITOGEN >10.000 IU/mL 04/18/2025 11:04 AM CDT [facility] Blood Venipuncture / Unknown 04/16/2025 2:43 PM CDT 04/16/2025 2:43 PM CDT us Diana Garcia APRN, MOVE COORDINATOR LAB_1 Final Result Performing Organization Address [facility] Co de Phone Number [facility] [address] [place] [address] * TB QuantiFERON Gold Plus TB2 (04/16/2025 2:43 PM CDT) TB2 0.165 IU/mL 04/18/2025 11:05 AM CDT [facility] Blood Venipuncture / Unknown 04/16/2025 2:43 PM CDT 04/16/2025 2:43 PM CDT Diana Garcia APRN, MOVE COORDINATOR LAB_1 Final Result Performing Organization Address [facility]/ZIP Co de Phone Number [facility] [address] [place] [address] * TB QuantiFERON Gold Plus TB1 (04/16/2025 2:43 PM CDT) TB1 0.111 IU/mL 04/18/2025 11:05 AM CDT [facility] Blood Venipuncture / Unknown 04/16/2025 2:43 PM CDT 04/16/2025 2:43 PM CDT Diana Garcia APRN, MOVE COORDINATOR LAB_1 Final Result Performing Organization Address [facility] Co de Phone Number [facility] [address] * TB QuantiFERON Gold Plus NIL (04/16/2025 2:43 PM CDT) [facility] TB QuantiFERON Gold Plus Negative, M. tuberculosis Infection NOT likely Negative, M. tuberculosis Infection NOT likely 04/18/2025 11:05 AM CDT [facility] NIL 0.233 IU/mL 04/18/2025 11:05 AM CDT [facility] TB1-NIL -0.12 IU/mL 04/18/2025 11:05 AM CDT [facility] TB2-NIL -0.06 IU/mL 04/18/2025 11:05 AM CDT [facility] Mitogen-NIL 9.77 IU/mL 04/18/2025 11:05 AM CDT [facility] Blood Venipuncture / Unknown 04/16/2025 2:43 PM CDT 04/16/2025 2:43 PM CDT Narrative [facility] - 04/18/2025 11:05 AM CDT The [...] immune response. For more information refer to: https://www.cdc.gov/mmwr/preview/mmwrhtml/xj2363z9.htm. Diana Garcia APRN, MOVE COORDINATOR LAB_1 Final Result Performing Organization Address [facility] Co de Phone Number [facility] [address] [place], [place] [address] * Vitamin D 25-Hydroxy, Total (02/18/2025 12:57 PM CDT) Vitamin D, 25-OH, Total 30 30 - 80 ng/mL 02/18/2025 7:58 PM CDT [facility] Blood Venipuncture / Unknown 02/18/2025 12:57 PM CDT 02/18/2025 12:57 PM CDT Narrative [facility] - 02/18/2025 7:58 PM CDT Expected values Deficiency: <20 ng/mL Insufficiency: 20-29 ng/mL Optimum: 30-80 ng/mL Possible toxicity: >80 ng/mL us Not On File Provider LAB_1 Final Resul t Performing Organization Address [facility] Co de Phone Number [facility] [address] * Folate Only (4Hr Fast Recommended) (02/18/2025 12:57 PM CDT) Folate 12.5 >=7.0 ng/mL 02/18/2025 8:11 PM CDT [facility] Blood Venipuncture / Unknown 02/18/2025 12:57 PM CDT 02/18/2025 12:57 PM CDT us Not On File Provider LAB_1 Final Resul t Performing Organization Address [facility]/ZIP Co de Phone Number [facility] [address] * Vitamin B12 Only (02/18/2025 12:57 PM CDT) Vitamin B12 773 213 - 816 pg/mL 02/18/2025 8:04 PM CDT [facility] Blood Venipuncture / Unknown 02/18/2025 12:57 PM CDT 02/18/2025 12:57 PM CDT us Not On File Provider LAB_1 Final Resul t Performing Organization Address [facility] Co de Phone Number [facility] [address] * Lipid Panel and Direct LDL(If Needed) (12/20/2023 8:50 AM LUNG PULLER) Cholesterol 186 0 - 199 mg/dL 12/20/2023 12:06 PM [facility] Triglyceride 139 <=149 mg/dL 12/20/2023 12:06 PM [facility] HDL Cholesterol 40 >=40 mg/dL 12/20/2023 12:06 PM [facility] LDL, Calculated 118 <130 mg/dL 12/20/2023 12:06 PM [facility] Non HDL Chol, Calculated 146 <=159 mg/dL 12/20/2023 12:06 PM [facility] Cholesterol/HDL Ratio 4.7 <=5.0 12/20/2023 12:06 PM [facility] Hours Fasting 0.1 8 - 12 Hours 12/20/2023 12:06 PM [facility] Blood Venipuncture / Unknown 12/20/2023 8:50 AM LUNG PULLER 12/20/2023 8:51 AM LUNG PULLER us Diana Garcia C 40A CREW CHIEF, MOVE COORDINATOR LAB_1 Final Result Performing Organization Address [facility] Co de Phone Number [facility] [address] * Hgb A1C (12/20/2023 8:50 AM LUNG PULLER) Hemoglobin A1C 5.2 <=5.6 % 12/20/2023 1:07 PM [facility] Estimated Average Glucose (Calc) 103 < 117 mg/dL 12/20/2023 1:07 PM [facility] Comment:Estimated average gl ucose (eAG) converts A1c into glucose units (mg/dL) and estimates average glucose over the past approximately 3 months. The eAG reference interval (<117 mg/dL) corresponds to an A1c of <5.7%. Blood Venipuncture / Unknown 12/20/2023 8:50 AM LUNG PULLER 12/20/2023 8:51 AM LUNG PULLER Diana Garcia APRN, [place] LAB_1 Final Result Performing Organization Address [facility] Co de Phone Number [facility] [address] [place] [address] * HIV 1/2 Ag/Ab 4th Generation (03/06/2017 9:31 AM CDT) Pathologist [facility] HIV 1/2 AG/AB 4thGEN Negative (Non Reactive) [facility] Comment:HIV-1 p24 Ag and HIV -1/HIV-2 Ab not detected. 03/06/2017 9:31 AM CDT 03/06/2017 9:32 AM CDT Narrative [email or web address] - 03/06/2017 4:24 PM CDT [facility], [address] [place] [address] us Abbi Figueroa MD LAB_1 Final Result Performing Organization Address [facility] Phone Number [employer] [phone] * Hepatitis C Antibody, with Reflex (03/06/2017 9:31 AM CDT) Pathologist [facility] Anti-HCV Negative (Non Reactive) [facility] Comment: Antibodies to HCV not detected. Does not exclude the possibility of exposure to HCV. 03/06/2017 9:31 AM CDT 03/06/2017 9:33 AM CDT Narrative [facility] - 03/06/2017 4:18 PM CDT [facility] at [facility], [address] [place], [place] [id number] Abbi Figueroa MD LAB_1 Final Result Performing Organization Address [facility] Co de Phone Number [employer] [phone] from Last 3 Months or Most Recently Relevant to Health Maintenance Insurance [employer] Care Teams Carton Filling Machine Operator Relationship Specialty Start Date End Date Lyn Chan MD [facility] [place] [address] PCP - General Family Practice 04/24/25
--- OUTSIDE RECORDS SUMMARY | 2025-04-27 13:22 | XMS_ITS | Clinical Summary ---
Author Organization [facility] Address [address] [place] [address]. 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
--- OUTSIDE RECORDS SUMMARY | 2025-04-27 13:22 | XMS_ITS | Encounter Summary ---
[facility] Address [address] [facility] [place] [place] [place] [address] Care Team Providers Care Food Critic Name Role Phone Lyn Chan MD Primary Care Provi amina Encounter Details Date Type Department Care Team (Late st Contact Info) Description 04/21/2025 Results Follow-Up [facility] [address] [facility] [place] [id number] Diana Garcia, SOLUTIONS DEVELOPMENT ANALYST, HOTEL SUPERINTENDENT [address] [facility] [address] [place] [address] Social History Tobacco Use Types Packs/Day Years [...] documented as of this encounter Visit Diagnoses Not on filedocumented in this encounter Care Teams Food Critic Relationship Specialty Start Date End Date Lyn Chan MD [address] [place] [id number] PCP - General Family Practice 04/24/25 documented as of this encounter
--- OUTSIDE RECORDS SUMMARY | 2025-04-27 13:23 | XMS_ITS | Clinical Summary ---
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 Gender Identity Not on file Sexual Orientation Not on file Occupation Industry Job Start Date Job End Date [employer] Not on file Not on file Not on file [employer] Not on file Not on file Not [...] this topic Medical Devices Implanted Type Area Strategic Manager Device Identifier Shelf Expiration Date Model / Serial / Lot [id number] - [id number] Implanted:Qty: 1 on 08/17/2022 by Selene Starks MD at [facility] Right: Shoulder [employer] 11/15/2025 [id number] / / [id number] Description:Suture anchor, b iocomposite swivel lock, 3.9 [...] mg/dL 05/08/2023 7:18 PM CDT [facility] Comment: Cholesterol, Total Reference Ranges Desirable <200 mg/dL Borderline 200-239 mg/dL High >=240 mg/dL TRIGLYCERIDES 218(H) <150 mg/dL 05/08/2023 7:18 PM CDT [facility] HDL CHOLESTEROL 37(L) >40 mg/dL 7:18 PM CDT [facility] NON-HDL CHOLESTEROL 243(H) <145 mg/dl 05/08/2023 7:18 PM CDT [facility] CHOL/HDL RATIO 7.57(H) <4.50 05/08/2023 7:18 PM CDT [facility] LDL CHOLESTEROL 199(H) <=130 mg/dL 05/08/2023 7:18 PM CDT [facility] VLDL CHOLESTEROL 44(H) <=30 mg/dL 05/08/2023 7:18 PM CDT [facility] PROVIDER ORDERED STATUS FASTING 05/08/2023 7:18 PM CDT [facility] Blood BLOOD SPECIMEN / Unknown Venipuncture / Unknown 05/08/2023 10:16 AM CDT 05/08/2023 10:16 AM CDT us Sunita FONTENOT CHEMISTRY Final Re sult [facility] [address] [place] [address], from Last 3 Months or Most Recently Relevant to Health Maintenance Insurance [facility] [place] [id number] WC WORKERS COMP Advance Directives * Full Code (Latest Code Status on File) Date Activated Date Inactivated Comments 08/17/2022 8:48 AM 08/17/2022 7:09 PM Question Answer Comments Code Status Discussion: Other * Full Code Date Activated Date Inactivated Comments 02/25/2011 7:33 AM 02/25/2011 12:38 PM Care Teams Set Designer Relationship Specialty Start Date End Date Diana Garcia NP [address] [place] [id number] PCP - General Nurse Practitioner 01/20/24 Sunita Valadez PA [address] [place] [id number] Physician Physician Allergist Immunologist 05/04/[address] [facility] [place] [address] Barrel Assembler Helper 05/04/23
--- NOTE | 2025-04-27 13:26 | ED_ITS ---
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 He actually injured his right leg (and his left anterior knee) during a work related accident on a overnight of April 18. I saw him here in the ER on the night of the injury and we did suture up a laceration on the left anterior patella . His stitches have been holding well and the wound is healing nicely. He has not had any significant redness. No purulent drainage. No bleeding. He is now 8 days out from suture placement. He is not having any pain. Normal range of motion. He has been ambulating normally. He also suffered a superficial abrasion to the mid right anterior tibia on the night of his fall. But did not have any significant swelling or deformity. He had normal range of motion and was able to ambulate on both legs. We did not get x-rays of his right tibia/fibula on the night of the injury. He notes that for the past several days he has had swelling that developed on t he anterior tibia and now swelling and bruising that is been spreading distally on the right posterior calf, Achilles, and now down into the ankle. He has noted progressively increasing swelling. Some burning pain in that area, and spreading bruising. No redness. No fever chills. No numbness or tingling in his foot. He has been able walk and bear weight and he has been back to work. Today he had even more increased pain and swelling so came to the ER. He came here today primarily because of the swelling and bruising his right leg, and also wonders if it is time to get the stitches out from his left knee. Related Data Home Medications ?Medication ?Instructions ?Recorded ?Confirmed bupropion HCl 150 mg 24 hr tablet, 150 mg PO QAM depre ssive disorder 04/19/25 04/19/25 extended release duloxetine 60 mg capsule,delayed 60 mg PO DAILY depres sive disorder 04/19/25 04/19/25 release Allergies Allergy/AdvReac Type Severity Reaction Status Date / Time Iodinated Contrast Media Allergy Verified 04/27/25 13:33 Penicillins Allergy Verified 04/27/25 13:33 shellfish derived Allergy Verified 04/27/25 13:33 Exam Narrative: Exam Narrative: Constitutional: Appears well-developed and well-nourished. Active. Non-toxic appearing. HENT: Head: Atraumatic. No signs of injury. Nose: No nasal discharge. Mouth/Throat: Mucous membranes are moist. Eyes: Conjunctivae normal and EOM are normal. Pupils are equal, round, and reactive to light. Right eye exhibits no discharge. Left eye exhibits no discharge. No icterus. Neck: Normal range of motion. Neck supple. No adenopathy. No stridor. Cardiovascular: Normal rate and regular rhythm. Symmetric PT pulses. Brisk capillary refill Pulmonary/Chest: Effort normal. No stridor. No respiratory distress. Musculoskeletal: Normal range of motion bilaterally in his hips, knees, ankles.. No bony tenderness. No deformity. There is a small 1 x2cm healing oval/round abrasion on the patient's right anterior ochoa. No surrounding erythema. No purulent drainage. No underlying palpable fluctuance or hematoma or abscess. No foreign body. No active bleeding. There is also edema with ecchymosis affecting the distal half of his gastrocnemius and Achilles, medial malleolus> lateral malleolus and swelling into the foot. Normal range of motion in the ankle. Strong DP and PT pulse. Normal distal cap refill brisk. Intact distal sensory function. There is a 2 cm healing horizontal laceration on the past since left anterior knee. Sutures are in place in the wound edges well apposed. There is a small rim about 2-3 mm slight erythema from healing but no signs of infection. Neurological: Alert. Normal strength. No cranial nerve deficit or sensory deficit. Coordination normal. GCS eye subscore is 4. GCS verbal subscore is 5. GCS motor subscore is 6. Skin: Skin is warm. No rash noted. Const: Vital Signs, click to edit/add: Vital Signs - 24 hr 04/27/25 13:33 Temperature 98.0 F Pulse Rate [Right Pulse Oximeter] 107 H Respiratory Rate 18 Blood Pressure [Ri ght Upper Arm] 149/83 H Pulse Oximetry 98 Oxygen Delivery Me thod Room Air Course Vital Signs Vital signs: Initial Vital Signs Temperature 98.0 F 04/27/25 13:33 Temperature Source Temporal Artery Scan 04/27/25 13:33 Pulse Rate 107 H 04/27/25 13:33 Respiratory Rate 18 04/27/25 13:33 Blood Pressure 149/83 H 04/27/25 13:33 Blood Pressure Mean 105 04/27/25 13:33 Blood Pressure Position Sitting 04/27/25 13:33 Pulse Oximetry 98 04/27/25 13:33 Oxygen Delivery Method Room Air 04/27/25 13:33 Vital Signs Temperature 98.0 F 04/27/25 13:33 Pulse Rate 107 H 04/27/25 13:33 Respiratory Rate 18 04/27/25 13:33 Blood Pressure 149/83 H 04/27/25 13:33 Pulse Oximetry 98 04/27/25 13:33 Oxygen Delivery Method Room Air 04/27/25 13:33 Temperature 98.0 F 04/27/25 13:33 Pulse Rate 107 H 04/27/25 13:33 Respiratory Rate 18 04/27/25 13:33 Blood Pressure 149/83 H 04/27/25 13:33 Pulse Oximetry 98 04/27/25 13:33 Oxygen Delivery Method Room Air 04/27/25 13:33 Medical Decision Making MDM Narrative Medical decision making narrative: 1. Patient has healing left anterior knee laceration. Stitches have been in place now for 8 days. Wound looks good. I would advise keeping the stitches in for at least 2 more days to allow the wound to have additional tensile strength before removing the stitches. I think he is at risk of dehiscence the wound we pull the stitches out too early. Fortunately there is no signs of infection and so far the stitches are holding nicely. Recommend removing the stitches on April 29 or , 10 days out from placement. 2. Patient is primarily concerned about evolving swelling and bruising involving his right lower leg with bruising all the way down into the ankle and medial foot. He did not have this sort of swelling and bruising on the night of his injury but did note a little bit of bruising and swelling around the anterior tibia the day after the injury and since then the swelling has spread distally. Concern here is for some occult fracture such as a midshaft fibular fracture. He has been able to bear weight, making the likelihood of a tibia fracture very low. Concern here might also be for DVT. Fortunately, ultrasound for DVT is negative. Discussed with the patient that so far workup is reassuring. Suspect that the ecchymosis and swelling worsening is probably posttraumatic and will likely heal with time. However recommended follow-up within 7 days if not improving for repeat ultrasound. Otherwise return to the ER if worsening swelling or bruising, worsening pain, or any chest pain or trouble breathing. Imaging Data XR right tib-fib: Attestation: I have reviewed the pertinent imaging results. My impression: No acute fracture. No air in the soft tissue. No foreign body Radiologist's impression: IMPRESSION: 1. No acute osseous injuries or abnormalities are noted. US Venous RLE: Attestation: I have reviewed the pertinent imaging results. Radiologist's impression: FINDINGS: Laterality: Right Examined veins: Common femoral, proximal deep femoral, superficial femoral, popliteal, peroneal, posterior tibial Greater saphenous, gastrocnemius, small saphenous The examined veins are patent with normal grayscale appearance and normal compressibility where anatomically feasible. Normal color Doppler flow. Normal venous waveforms on duplex Doppler ultrasound with normal augmentation. The left common femoral vein was sampled for comparison and is normal. IMPRESSION: No deep vein thrombosis in the right lower extremity. Discharge Plan Discharge Clinical Impression: Traumatic ecchymosis of right lower leg Patient Disposition: Home, Self-Care Condition: Stable Instructions: Contusion in Adults (ED) Additional Instructions: As we discussed, so further workup for the bruising and swelling in her leg looks good. Right now we suspect that the bruising is related to your injuries and will probably get better over the next few days. If you have increasing bruising or swelling, worsening pain in your leg, or if you develop any chest pain or trouble breathing, please come back to the emergency room right away. If the bruising and swelling in your right leg is not completely resolved within 7 days, please come back to the ER or recheck with her doctor. For the laceration on your left knee, please try to keep it clean. Keep it covered with antibiotic ointment and a dressing. Remove the stitches or see your doctor to have them removed on April 29 or . Continue to watch for signs of infection. So far your laceration appears to be healing well. Prescriptions: No Action bupropion HCl 150 mg tablet extended release 24 hr 150 mg PO QAM duloxetine 60 mg capsule,delayed release(DR/EC) 60 mg PO DAILY Follow Up/Referrals: Provider,Not a Local [Primary Care Provider, Family Practice] Stand Alone Forms: [employer] Info Instructions
[2025-04-27 13:33] VITALS: BP 149/83; PULSE 107; RESP 18; TEMP 36.7; O2SAT 98; BMI 38.2
--- NOTE | 2025-04-27 13:42 | CRLHL7_ITS ---
For Patients: As a result of the Century Cures Act, medical imaging exams and procedure reports are released immediately into your electronic medical record. You may view this report before your referring provider. If you have questions, please contact your health care provider. INDICATION: Fall 8 days ago, spreading bruising and tibia pain TECHNIQUE: Tibia-fibula radiograph 2 views right COMPARISON: None FINDINGS: Bone: No acute fractures or aggressive bone lesions are identified. Joint: The visualized knee and ankle joints are unremarkable. No significant joint effusion is seen. Soft tissue: Unremarkable. No radiopaque foreign bodies are seen. IMPRESSION: 1. No acute osseous injuries or abnormalities are noted. Dictated by: Chava Clement MD @ 04/27/2025 14:05:51 (Electronically Signed)
--- NOTE | 2025-04-27 13:54 | CRLHL7_ITS ---
For Patients: As a result of the Century Cures Act, medical imaging exams and procedure reports are released immediately into your electronic medical record. You may view this report before your referring provider. If you have questions, please contact your health care provider. INDICATION: Right leg pain swelling and bruising after an injury last week COMPARISON: Radiographs 04/27/2025 TECHNIQUE: Garcia-scale, color, and duplex Doppler imaging of the right lower extremity veins. Compression and augmentation attempted where anatomically and clinically feasible. FINDINGS: Laterality: Right Examined veins: Common femoral, proximal deep femoral, superficial femoral, popliteal, peroneal, posterior tibial Greater saphenous, gastrocnemius, small saphenous The examined veins are patent with normal grayscale appearance and normal compressibility where anatomically feasible. Normal color Doppler flow. Normal venous waveforms on duplex Doppler ultrasound with normal augmentation. The left common femoral vein was sampled for comparison and is normal. IMPRESSION: No deep vein thrombosis in the right lower extremity. Dictated by Rosa Rodriguez MD @ 04/27/2025 3:42:04 PM (Electronically Signed)
== END 2025-04-27 16:05 | disposition home or self-care (01) ==
PROVIDERS: Emergency Provider Emergency Medicine
DX: S80.11XA Contusion of right lower leg, initial encounter (principal)
CPT/HCPCS: 73590; 93971; 99282; 99283